=== PATIENT | male | born 1975 | race Caucasian/White ===

== ENCOUNTER 2021-12-30 20:18 | Emergency (ER) | payer SELFPAY ==
[2021-12-30] MEDS ORDERED: Sodium Chloride 0.9% 1,000 ML IV ONE (20:57)
[2021-12-30 21:47] LABS: CARBON DIOXIDE,CO2 25.4 mmol/L (21.0-32.0); POTASSIUM,K 5.1 mmol/L (3.5-5.1)
[2021-12-30] MEDS ORDERED: 50% Dextrose in Water 50 ML Syringe IVPUSH PRN (21:57)
[2021-12-30] MEDS ORDERED: Insulin Regular, Human 100 Units/ML 10 ML Vial IVPUSH ONE (21:57)
[2021-12-30] MEDS ORDERED: metFORMIN 500 MG Tab PO ONE (21:58)
[2021-12-30] MEDS ORDERED: Ondansetron 4 MG/2 ML SDV IVPUSH ONE (21:59)
== END 2021-12-30 23:35 | disposition home or self-care (01) ==
LOC: MW.ED 20:18
DX: T58.91XA Toxic effect of carbon monoxide from unspecified source, accidental (unintentional), initial encounter (principal); R73.9 Hyperglycemia, unspecified; Z79.899 Other long term (current) drug therapy; Z20.822 Contact with and (suspected) exposure to COVID-19
CPT/HCPCS: 36415; 80053; 82375; 83735; 84484; 85025; 85379; 87635; 93005; 96361; 96374; 99285; A9270; J2405; J7030; 93010; 99284; J1815-GY; U0002